=== PATIENT | female | born 1990 | race Two or more races ===

== ENCOUNTER 2020-07-02 11:59 | Emergency (ER) | payer MEDICAID, OTHER ==
[~2020-07-02] VITALS: Ht 172.7 cm; Wt 85.6 kg
--- NOTE | 2020-07-02 12:54 | NUR ---
PT TO US
[2020-07-02 13:10] LABS: BASOPHILS % (AUTO) 1 % (0-1); EOSINOPHILS % (AUTO) 1 % (1-7); LYMPHOCYTES % (AUTO) 21 % (22-44); MEAN CORPUSCULAR HEMOGLOBIN 31.1 pg (27.0-34.8); MEAN CORPUSCULAR HGB CONC 33.9 g/dL (32.4-35.8); MEAN PLATELET VOLUME 8.1 fL (7.4-10.4); MONOCYTES % (AUTO) 7 % (2-9); NEUTROPHILS % (AUTO) 71 % (42-75); PLATELET COUNT 322 x10^3/uL (130-400); RED BLOOD COUNT 4.62 x10^6/uL (3.82-5.3); RED CELL DISTRIBUTION WIDTH 13.2 % (9.6-15.2)
[2020-07-02 13:11] LABS: ALBUMIN 3.3 g/dL (3.4-5.0); ANION GAP 3 mmol/L (5-15); CALCIUM 8.9 mg/dL (8.5-10.1); CHLORIDE 108 mmol/L (98-107); MD NO
--- NOTE | 2020-07-02 13:24 | NUR ---
task RN note: pt remains in US at this time.
[2020-07-02 13:29] LABS: ALANINE AMINOTRANSFERASE 19 U/L (12-78); ALKALINE PHOSPHATASE 85 U/L (45-117); BILIRUBIN,TOTAL 0.4 mg/dL (0.2-1.0); CREATININE 0.83 mg/dL (0.55-1.02); TOTAL PROTEIN 7.4 g/dL (6.4-8.2)
--- NOTE | 2020-07-02 13:50 | NUR ---
PT RETUNRED FROM US
--- NOTE | 2020-07-02 14:00 | NUR ---
PT SITTING UPRIGHT ON GURNEY WITH S.O. AT BEDSIDE. NAD, VSS. STRAIGHT CATH PERFORMED TO OBTAIN URINE SAMPLE. PT DENIES ANY NEEDS AT THIS TIME. CALL LIGHT IN REACH. WILL CONTINUE TO MONITOR.
[2020-07-02 14:38] LABS: MICROSCOPIC NOT IND
[2020-07-02 15:02] VITALS: BP 114/64
--- NOTE | 2020-07-02 15:22 | NUR ---
Patient given discharge instructions and they have confirmed that they understand the instructions. Patient ambulatory with steady gait.
== END 2020-07-02 15:24 | disposition home or self-care (01) ==
LOC: ED 13:01
DX: O20.0 Threatened abortion (principal); R10.2 Pelvic and perineal pain; Z3A.01 Less than 8 weeks gestation of pregnancy
CPT/HCPCS: 36415; 76801; 80053; 81003; 84702; 85025; 86901; 99284

== ENCOUNTER 2020-07-04 09:48 | Emergency (ER) | payer MEDICAID ==
[~2020-07-04] VITALS: Ht 172.7 cm; Wt 85.3 kg
[2020-07-04 10:04] VITALS: BP 124/81
--- NOTE | 2020-07-04 12:28 | NUR ---
Patient/Caregiver given discharge instructions and they have confirmed that they understand the instructions. Patient ambulatory with steady gait.
== END 2020-07-04 12:31 | disposition home or self-care (01) ==
LOC: ED 12:20
DX: O20.0 Threatened abortion (principal); Z3A.01 Less than 8 weeks gestation of pregnancy
CPT/HCPCS: 36415; 84702; 99283